=== PATIENT | male | born 1965 | race Two or more races ===

== ENCOUNTER 2017-01-25 07:33 | Emergency (ER) | payer SELFPAY ==
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
--- NOTE | ~2017-01-25 | EKG ---
PATIENT: ENDER LITTLE UNIT #: [id number] Ventricular Rate: 119 BPM Atrial Rate: 119 BPM P-R Interval: 154 ms QRS Duration: 98 ms Q-T Interval: 324 ms QTC Calculation(Bezet): 455 ms P [place]: 40 degrees Calculated R [place]: -10 degrees Calculated T [place]: -11 degrees Diagnosis Line: Sinus tachycardia Diagnosis Line: Moderate voltage criteria for LVH, may be normal Diagnosis Line: variant Diagnosis Line: Borderline ECG Diagnosis Line: No previous ECGs available Diagnosis Line: Confirmed by KALI GIPSON MD ([id number]) on Diagnosis Line: 01/29/2017 11:17:19 AM INTERPRETING MD: LEONELA ANDRE
[~2017-01-25 07:33] MED LIST: NO MEDICATIONS
[2017-01-25 08:32] LABS: POC - CKMB 3.6 ng/mL (0.0-7.9); POC - MYOGLOBIN 99.5 ng/mL (0.0-169.0); POC - TROPONIN <0.05 ng/mL (<=0.05)
[2017-01-25 08:39] LABS: URINE SOURCE CLEAN CATCH
[2017-01-25 08:41] LABS: BASOPHIL% 0.5 % (0-2.5); EOSINOPHIL% 0.1 % (0.0-7.0); HEMATOCRIT 42.9 % (38.0-50.0); HEMOGLOBIN 14.9 gm/dL (13.0-16.0); LYMPHOCYTE# 0.5 X10e3 (1.0-3.5); LYMPHOCYTE% 7.8 % (17.0-45.0); MEAN CELL VOLUME 90.6 FL (83-96); MEAN CORPUSCULAR HEMOGLOBIN 31.5 PG (28-34); MEAN CORPUSCULAR HGB CONC 34.7 g/dL (30-36); MEAN PLATELET VOLUME 8.9 FL (6.5-11.5); MONOCYTE# 0.1 X10e3 (0-1.0); MONOCYTE% 2.4 % (3.0-12.0); NEUTROPHIL# 5.2 X10e3 (1.5-7.1); NEUTROPHIL% 89.2 % (40-75); PLATELET COUNT 199 X10e3 (140-420); RED BLOOD COUNT 4.73 X10e (3.90-5.60); RED CELL DISTRIBUTION WIDTH 12.8 % (11.0-15.5); WHITE BLOOD COUNT 5.9 X10e3 (4.0-10.5)
[2017-01-25 08:43] LABS: DIFF IND NO; URINE APPEARANCE CLEAR; URINE BILIRUBIN NEG (NEG); URINE BLOOD NEG (NEG); URINE COLOR YELLOW; URINE GLUCOSE NEG (NORM); URINE KETONE TRACE (NEG); URINE LEUKOCYTE ESTERASE NEG (NEG); URINE NITRATE NEG (NEG); URINE PROTEIN 1+ (NEG); URINE SPECIFIC GRAVITY >=1.030 (1.003-1.035); URINE UROBILINOGEN 0.2 MG/DL (NORM)
[2017-01-25 08:44] LABS: MICRO INDICATED? YES
[2017-01-25 08:48] LABS: CULTURE INDICATED? YES; URINE BACTERIA 1+ (NEG); URINE MUCUS PRESENT; URINE SPERM PRESENT; URINE WBC 0-2 /[HPF] (0-5)
[2017-01-25 08:53] LABS: AMPHETAMINE POS (NEG); BARBITURATES NEG (NEG); BENZODIAZEPINES NEG (NEG); COCAINE NEG (NEG); MARIJUANA NEG (NEG); OPIATES NEG (NEG); TRICYCLIC ANTIDEPRESSANTS NEG (NEG); U METHADONE NEG (NEG)
[2017-01-25 09:00] LABS: ALBUMIN SERUM 4.9 g/dL (3.5-5.0); BILIRUBIN, DIRECT 0.1 mg/dL (0.0-0.2); BILIRUBIN,INDIRECT 0.6 mg/dL (0.0-0.9); BILIRUBIN,TOTAL 0.7 mg/dL (0.2-2.0); BUN/CREATININE RATIO 16.25; CALCIUM SERUM 8.8 mg/dL (8.4-10.2); CREATININE SERUM 0.8 mg/dL (0.6-1.4); GLOM FILT RATE Estimated 103.5 mL/min (>60); POTASSIUM 3.4 mmol/L (3.5-5.1); PROTEIN TOTAL SERUM 8.8 g/dL (6.0-8.3)
[2017-01-25 09:57] LABS: POC - CKMB 3.6 ng/mL (0.0-7.9); POC - MYOGLOBIN 83.1 ng/mL (0.0-169.0); POC - TROPONIN <0.05 ng/mL (<=0.05)
== END 2017-01-25 12:17 | disposition home or self-care (01) ==
LOC: SED 07:33
PROVIDERS: Student in an Organized Health Care Education/Training Program
DX: R10.9 Unspecified abdominal pain (principal); F10.129 Alcohol abuse with intoxication, unspecified; F15.129 Other stimulant abuse with intoxication, unspecified
CPT/HCPCS: 36415; 74176; 80048; 80076; 80307; 81003; 82150; 82553; 83690; 83874; 84484; 85025; 87086; 93005; 96361; 96374; 96375; 99285; C9113; G0480; J2270; J2405